=== PATIENT | female | born 1955 | race African-American/Black ===

== ENCOUNTER 2016-09-22 16:11 | Emergency (ER) | payer OTHER ==
[~2016-09-22] VITALS: Ht 175.3 cm; Wt 110.2 kg
[~2016-09-22 16:11] MED LIST: AMLO10TA2 PO; ASPI-378 PO; ASPI81CH43 PO; CYCL1TAB18 PO; FENO160T8 PO; GABA-497 PO; HYDR-1421 PO; HYDR-2601 PO; IBUP800T24 PO; INSUINJ32 SUBCUT; LISI-285 PO; LISI-287 PO; NOVOLOG; SIMV-8 PO; ZOLP10TA6 PO
[2016-09-22 16:49] VITALS: BP 173/58
== END 2016-09-22 17:59 | disposition home or self-care (01) ==
LOC: ER 16:13
DX: E11.42 Type 2 diabetes mellitus with diabetic polyneuropathy (principal); Z79.4 Long term (current) use of insulin; Z87.891 Personal history of nicotine dependence; I10 Essential (primary) hypertension; Z79.82 Long term (current) use of aspirin; Z88.0 Allergy status to penicillin; Z79.899 Other long term (current) drug therapy

== ENCOUNTER 2017-03-02 19:07 | Emergency (ER) | payer OTHER ==
[~2017-03-02] VITALS: Ht 175.3 cm; Wt 95.3 kg
[2017-03-02 20:16] LABS: Basophils # (auto) 0.1 uL; Basophils % (auto) 0.8 % (0.0-2.0); Eosinophils # (auto) 0.1 uL; Eosinophils % (auto) 1.1 % (0.0-7.0); Hematocrit 38.4 % (36.0-46.0); Hemoglobin 12.2 g/dL (12.2-16.2); Lymphocytes % (auto) 24.2 % (10.0-50.0); Mean Corpuscular Hemoglobin 26.3 pg (28.0-32.0); Mean Corpuscular Hgb Conc. 31.9 g/dL (32.0-36.0); Mean Corpuscular Volume 82.7 fL (80.0-100.0); Monocytes # (auto) 0.7 uL; Monocytes % (auto) 5.3 % (0.0-12.0); Neutrophils # (auto) 8.6 uL; Neutrophils % (auto) 68.6 % (37.0-80.0); Platelet Count (auto) 332 10^3/uL (140-450); White Blood Cell 12.6 10^3/uL (4.4-10.8)
[2017-03-02 20:48] LABS: Albumin 3.7 g/dL (3.4-5.0); BUN/Creatinine Ratio 18.5; Bilirubin, Total 0.5 mg/dL (0.2-1.0); Calcium 8.9 mg/dL (8.5-10.1); Potassium 3.8 mmol/L (3.5-5.1); Total Protein 7.8 g/dL (6.4-8.2)
[2017-03-03 04:18] LABS: INR 1.04 (0.9-1.15); Partial Thromboplastin Time 25.2 sec (22.64-33.71); Prothrombin Time 11.3 sec (9.37-12.3)
[2017-03-03 04:30] LABS: B-Type Natriuretic Peptide 394.65 pg/mL (0-100)
[2017-03-03 04:34] LABS: Temperature: 22.4 C (20.0-25.0)
[2017-03-03] MEDS ORDERED: FUROSEMIDE 20 MG/2 ML VIAL IV ONE (05:00)
[2017-03-03 06:02] VITALS: BP 162/101
[2017-03-03 07:42] LABS: Urine Blood Negative /uL (Negative); Urine Color Yellow (Yellow); Urine Glucose Normal (Normal); Urine Ketone Negative (Negative); Urine Mucus MODERATE (None Seen); Urine Nitrite Negative (Negative); Urine RBC 2 /hpf (0 - 4); Urine Squamous Epithelial Cell MANY /hpf (<5); Urine Urobilinogen Normal (Negative)
[2017-03-03 08:13] LABS: Urine Bilirubin Negative (Negative)
== END 2017-03-03 06:30 | disposition home or self-care (01) ==
LOC: ER 19:07
DX: I11.0 Hypertensive heart disease with heart failure (principal); I50.9 Heart failure, unspecified; N39.0 Urinary tract infection, site not specified; E11.9 Type 2 diabetes mellitus without complications; Z87.891 Personal history of nicotine dependence
CPT/HCPCS: 36415; 71010; 80053; 81001; 82962; 83880; 84443; 84484; 85025; 85610; 85730; 96374; 99285; J1940

== ENCOUNTER 2017-05-25 00:44 | Inpatient (IN) | payer OTHER ==
[~2017-05-25] VITALS: Ht 175.3 cm; Wt 118.9 kg
[~2017-05-25 00:44] MED LIST changes: -GABA-497 PO; +GABA300C10 PO
[2017-05-25 01:36] LABS: Eosinophils # (auto) 0 uL; Hemoglobin 12.6 g/dL (12.2-16.2); Mean Corpuscular Hemoglobin 24.9 pg (28.0-32.0); White Blood Cell 11.9 10^3/uL (4.4-10.8)
[2017-05-25 01:38] LABS: Basophils # (auto) 0 uL; Basophils % (auto) 0.3 % (0.0-2.0); Eosinophils % (auto) 0.1 % (0.0-7.0); Lymphocytes # (auto) 1.9 uL; Lymphocytes % (auto) 15.7 % (10.0-50.0); Mean Corpuscular Hgb Conc. 31.4 g/dL (32.0-36.0); Mean Corpuscular Volume 79.4 fL (80.0-100.0); Monocytes # (auto) 0.6 uL; Monocytes % (auto) 4.7 % (0.0-12.0); Neutrophils # (auto) 9.4 uL; Neutrophils % (auto) 79.2 % (37.0-80.0); Platelet Count (auto) 353 10^3/uL (140-450); Red Blood Cells 5.04 10^6/uL (4.0-5.20); Red Cell Distribution Width 15.4 % (11.8-14.3)
[2017-05-25 01:53] LABS: INR 1.12 (0.9-1.15); Partial Thromboplastin Time 25.9 sec (22.64-33.71); Prothrombin Time 12.2 sec (9.37-12.3)
[2017-05-25 01:54] LABS: Alanine Aminotransferase 13 U/L (13-56); Albumin 3.6 g/dL (3.4-5.0); Anion Gap 8 (5-15); BUN/Creatinine Ratio 22.1; Blood Urea Nitrogen 30 mg/dL (7-18); Calcium 8.8 mg/dL (8.5-10.1); Carbon Dioxide 27 mmol/L (21-32); Chloride 105 mmol/L (98-107); GFR African American 51 mL/min; GFR Non-African American 42 mL/min; Glucose 147 mg/dL (74-106); Magnesium 2.3 mg/dL (1.6-2.6); Potassium 4.4 mmol/L (3.5-5.1); Sodium 140 mmol/L (136-145)
[2017-05-25 02:05] LABS: Alkaline Phosphatase 57 U/L (45-117); Aspartate Aminotransferase 32 U/L (15-37); Bilirubin, Total 0.6 mg/dL (0.2-1.0); Total Protein 8.5 g/dL (6.4-8.2)
[2017-05-25] MEDS ORDERED: FUROSEMIDE 40 MG/4 ML VIAL IV ONE (07:15)
[2017-05-25 08:31] LABS: Urine Bacteria FEW /hpf (None Seen); Urine Blood Negative /uL (Negative); Urine Mucus FEW (None Seen); Urine Specific Gravity 1.014 (1.001-1.035); Urine WBC 1 /hpf (0 - 5)
[2017-05-25] MEDS ORDERED: DEXTROSE (50%) 50ML SYRG IV PRN (09:15)
[2017-05-25] MEDS ORDERED: MORPHINE SULFATE 4 MG/ML SYR/VIAL IV PRN (09:15)
[2017-05-25] MEDS ORDERED: NITROGLYCERIN 0.4 MG SL TAB SL PRN (09:15)
[2017-05-25] MEDS ORDERED: hydrOXYzine 25 MG TAB or CAP PO PRN (09:30)
[2017-05-25] MEDS ORDERED: LISINOPRIL 20 MG TAB PO SCH (10:00)
[2017-05-25] MEDS ORDERED: ASPI81CH43 PO (11:14)
[2017-05-25] MEDS ORDERED: FENO160T8 PO (11:14)
[2017-05-25] MEDS ORDERED: SIMV-8 PO (11:14)
[2017-05-25] MEDS ORDERED: ATOR10TA52 PO (11:14)
[2017-05-25] MEDS ORDERED: GABA300C10 PO (11:14)
[2017-05-25] MEDS ORDERED: HYDR-3682 PO (11:14)
[2017-05-25] MEDS ORDERED: BENZ100C97 PO (11:14)
[2017-05-25] MEDS ORDERED: FURO40TA4 PO (11:14)
[2017-05-25] MEDS ORDERED: ACET-1158 PO (11:14)
[2017-05-25] MEDS ORDERED: ALBU2TAB4 INH (11:14)
[2017-05-25] MEDS ORDERED: INSU100I24 SC (11:14)
[2017-05-25] MEDS ORDERED: POTA10TA51 PO (11:14)
[2017-05-25] MEDS ORDERED: LEVEMIR SC (11:14)
[2017-05-25] MEDS ORDERED: ETOD1TAB60 PO (11:14)
[2017-05-25] MEDS ORDERED: LISI-285 PO (11:14)
[2017-05-25 12:00] VITALS: BP 155/86
[2017-05-25] MEDS: ACCU-CHEK COMFORT CURVE STRIP VI SCH ×3 (12:27→22:10)
[2017-05-25] MEDS: INSULIN LANTUS (GLARGINE) 1 /0.01ml (100units/ml) SC SCH ×3 (12:28→22:10)
[2017-05-25] MEDS: InsuLIN REG 1unit/0.01ml Soln (100units/ml) SC SCH ×3 (12:28→22:09)
[2017-05-25] MEDS: NovoloG Insulin 1unit/0.01ml Soln (100units/ml) SC SCH ×2 (12:29→17:00)
[2017-05-25] MEDS: DOXYCYCLINE HYC 100MG/250ML 250 ML IV SCH ×2 (13:00→21:50)
[2017-05-25] MEDS: MULTIPLE VITAMIN TAB PO SCH (13:02)
[2017-05-25] MEDS: POTASSIUM CHL 10 Meq TABLET PO SCH ×2 (13:02→21:56)
[2017-05-25] MEDS: ASPirin-EC 81 mg tab PO SCH (13:02)
[2017-05-25] MEDS: ALBUTEROL SULF 2.5 MG/0.5ML(0.5%) NEB SOLN NEB SCH ×2 (13:02→20:43)
[2017-05-25] MEDS: HCTZ 25 MG TAB PO SCH ×2 (13:04→21:56)
[2017-05-25] MEDS: SODIUM CHLOR 0.9% PF (SALINE LOCK) 10ML VIAL IV SCH ×2 (13:49→21:50)
[2017-05-25] MEDS: GABAPENTIN 300 MG CAP PO SCH ×2 (13:50→21:56)
[2017-05-25 15:00] VITALS: BP 163/86
[2017-05-25] MEDS: HYDROcodone-ACET 5/325MG TAB PO PRN (17:07)
[2017-05-25] MEDS: FUROSEMIDE 40 MG/4 ML VIAL IV SCH (17:44)
[2017-05-25] MEDS: ATORVASTATIN 20 MG TAB PO SCH (21:54)
[2017-05-25] MEDS: AMIODARONE HCL 200 MG TAB PO SCH (21:55)
[2017-05-25] MEDS: CARVEDILOL 3.125 MG TAB PO SCH (21:55)
[2017-05-25 22:06] VITALS: BP 142/78
[2017-05-26] MEDS: ALBUTEROL SULF 2.5 MG/0.5ML(0.5%) NEB SOLN NEB SCH ×4 (01:35→19:56)
[2017-05-26 05:02] VITALS: BP 112/63
[2017-05-26 06:15] LABS: Basophils # (auto) 0.1 uL; Eosinophils # (auto) 0.1 uL; Hemoglobin 11.3 g/dL (12.2-16.2); Monocytes # (auto) 0.6 uL; Nucleated Red Blood Cells % 0.1 %
[2017-05-26 06:18] LABS: Basophils % (auto) 0.7 % (0.0-2.0); Eosinophils % (auto) 1.6 % (0.0-7.0); Hematocrit 35.3 % (36.0-46.0); Lymphocytes # (auto) 2.1 uL; Lymphocytes % (auto) 25.3 % (10.0-50.0); Mean Corpuscular Hemoglobin 24.9 pg (28.0-32.0); Mean Corpuscular Volume 77.7 fL (80.0-100.0); Monocytes % (auto) 7.2 % (0.0-12.0); Neutrophils # (auto) 5.5 uL; Neutrophils % (auto) 65.2 % (37.0-80.0); Platelet Count (auto) 336 10^3/uL (140-450); Red Blood Cells 4.55 10^6/uL (4.0-5.20); Red Cell Distribution Width 15.2 % (11.8-14.3); White Blood Cell 8.5 10^3/uL (4.4-10.8)
[2017-05-26] MEDS: GABAPENTIN 300 MG CAP PO SCH ×3 (06:19→21:14)
[2017-05-26] MEDS: InsuLIN REG 1unit/0.01ml Soln (100units/ml) SC SCH ×4 (06:19→21:05)
[2017-05-26] MEDS: ACCU-CHEK COMFORT CURVE STRIP VI SCH ×4 (06:20→21:06)
[2017-05-26] MEDS: FUROSEMIDE 40 MG/4 ML VIAL IV SCH ×2 (06:23→17:41)
[2017-05-26] MEDS: SODIUM CHLOR 0.9% PF (SALINE LOCK) 10ML VIAL IV SCH ×3 (06:23→21:18)
[2017-05-26 06:36] LABS: Potassium 3.6 mmol/L (3.5-5.1)
[2017-05-26] MEDS: INSULIN LANTUS (GLARGINE) 1 /0.01ml (100units/ml) SC SCH ×3 (06:36→21:05)
[2017-05-26] MEDS: NovoloG Insulin 1unit/0.01ml Soln (100units/ml) SC SCH ×3 (06:37→17:42)
[2017-05-26 06:41] LABS: Albumin 3.2 g/dL (3.4-5.0); BUN/Creatinine Ratio 22.9; Calcium 8.6 mg/dL (8.5-10.1)
[2017-05-26 06:43] LABS: Bilirubin, Total 0.7 mg/dL (0.2-1.0); Total Protein 7.3 g/dL (6.4-8.2)
[2017-05-26 08:00] VITALS: BP 129/73
[2017-05-26 08:39] VITALS: BP 129/73
[2017-05-26] MEDS: ONDANSETRON HCL 4 MG/2 ML VIAL IV PRN (09:06)
[2017-05-26] MEDS: HYDROcodone-ACET 5/325MG TAB PO PRN ×2 (09:07→21:14)
[2017-05-26] MEDS: CARVEDILOL 3.125 MG TAB PO SCH ×2 (09:08→21:15)
[2017-05-26] MEDS: AMIODARONE HCL 200 MG TAB PO SCH ×2 (09:09→21:15)
[2017-05-26] MEDS: HCTZ 25 MG TAB PO SCH ×2 (09:10→21:18)
[2017-05-26] MEDS: MULTIPLE VITAMIN TAB PO SCH (09:10)
[2017-05-26] MEDS: POTASSIUM CHL 10 Meq TABLET PO SCH ×2 (09:10→21:14)
[2017-05-26] MEDS: ASPirin-EC 81 mg tab PO SCH (09:11)
[2017-05-26] MEDS: LISINOPRIL 5 MG TAB PO SCH (09:11)
[2017-05-26] MEDS: DOXYCYCLINE HYC 100MG/250ML 250 ML IV SCH ×2 (09:13→21:13)
[2017-05-26 12:00] VITALS: BP 91/56
[2017-05-26 16:00] VITALS: BP 100/66
[2017-05-26] MEDS: ATORVASTATIN 20 MG TAB PO SCH (21:13)
[2017-05-26 21:38] VITALS: BP 97/57
[2017-05-26] MEDS: TEMAZEPAM 15 MG CAP PO PRN (22:24)
[2017-05-27] MEDS: ALBUTEROL SULF 2.5 MG/0.5ML(0.5%) NEB SOLN NEB SCH ×4 (01:04→18:40)
[2017-05-27 05:15] VITALS: BP 101/50
[2017-05-27] MEDS: FUROSEMIDE 40 MG/4 ML VIAL IV SCH ×2 (06:04→18:00)
[2017-05-27] MEDS: SODIUM CHLOR 0.9% PF (SALINE LOCK) 10ML VIAL IV SCH ×3 (06:04→22:00)
[2017-05-27] MEDS: GABAPENTIN 300 MG CAP PO SCH ×3 (06:05→21:55)
[2017-05-27] MEDS: ACCU-CHEK COMFORT CURVE STRIP VI SCH ×4 (06:07→22:10)
[2017-05-27] MEDS: InsuLIN REG 1unit/0.01ml Soln (100units/ml) SC SCH ×4 (06:09→22:10)
[2017-05-27] MEDS: NovoloG Insulin 1unit/0.01ml Soln (100units/ml) SC SCH ×3 (06:11→17:00)
[2017-05-27 08:00] VITALS: BP 95/52
[2017-05-27] MEDS ORDERED: ADENOSINE 94 MG in GIVE UN-DILUTED 0 ML IV STA (08:37)
[2017-05-27 09:24] VITALS: BP 143/85
[2017-05-27] MEDS: INSULIN LANTUS (GLARGINE) 1 /0.01ml (100units/ml) SC SCH ×2 (10:00→22:00)
[2017-05-27] MEDS: CARVEDILOL 3.125 MG TAB PO SCH ×2 (10:00→21:59)
[2017-05-27] MEDS: LISINOPRIL 5 MG TAB PO SCH (10:00)
[2017-05-27 11:40] VITALS: BP 91/54
[2017-05-27] MEDS: AMIODARONE HCL 200 MG TAB PO SCH ×2 (11:49→22:00)
[2017-05-27] MEDS: DOXYCYCLINE HYC 100MG/250ML 250 ML IV SCH (11:49)
[2017-05-27] MEDS: HCTZ 25 MG TAB PO SCH ×2 (11:50→22:00)
[2017-05-27] MEDS: ASPirin-EC 81 mg tab PO SCH (11:50)
[2017-05-27] MEDS: MULTIPLE VITAMIN TAB PO SCH (11:51)
[2017-05-27] MEDS: POTASSIUM CHL 10 Meq TABLET PO SCH ×2 (11:51→21:59)
[2017-05-27] MEDS: ONDANSETRON HCL 4 MG/2 ML VIAL IV PRN (11:53)
[2017-05-27 16:47] VITALS: BP 94/58
[2017-05-27] MEDS: ATORVASTATIN 20 MG TAB PO SCH (21:55)
[2017-05-27 22:04] VITALS: BP 101/54
[2017-05-27] MEDS: HYDROcodone-ACET 5/325MG TAB PO PRN (22:08)
[2017-05-28] MEDS: ALBUTEROL SULF 2.5 MG/0.5ML(0.5%) NEB SOLN NEB SCH ×4 (00:16→19:02)
[2017-05-28] MEDS: DOXYCYCLINE HYC 100MG/250ML 250 ML IV SCH ×2 (01:01→09:47)
[2017-05-28] MEDS: ONDANSETRON HCL 4 MG/2 ML VIAL IV PRN (03:31)
[2017-05-28 04:56] VITALS: BP 110/56
[2017-05-28] MEDS: FUROSEMIDE 40 MG/4 ML VIAL IV SCH (06:00)
[2017-05-28] MEDS: GABAPENTIN 300 MG CAP PO SCH ×3 (06:46→22:28)
[2017-05-28] MEDS: SODIUM CHLOR 0.9% PF (SALINE LOCK) 10ML VIAL IV SCH ×3 (06:46→22:24)
[2017-05-28] MEDS: ACCU-CHEK COMFORT CURVE STRIP VI SCH ×4 (06:47→22:38)
[2017-05-28] MEDS: InsuLIN REG 1unit/0.01ml Soln (100units/ml) SC SCH ×4 (06:47→22:00)
[2017-05-28] MEDS: NovoloG Insulin 1unit/0.01ml Soln (100units/ml) SC SCH ×3 (06:48→17:00)
[2017-05-28 07:27] LABS: Basophils # (auto) 0 uL; Basophils % (auto) 0.4 % (0.0-2.0); Eosinophils # (auto) 0.2 uL; Hemoglobin 10.9 g/dL (12.2-16.2); Monocytes # (auto) 0.7 uL; Nucleated Red Blood Cells % 0.1 %
[2017-05-28 07:29] VITALS: BP 102/55
[2017-05-28 07:30] LABS: Eosinophils % (auto) 1.8 % (0.0-7.0); Hematocrit 34.8 % (36.0-46.0); Lymphocytes # (auto) 1.9 uL; Lymphocytes % (auto) 16.7 % (10.0-50.0); Mean Corpuscular Hemoglobin 24.5 pg (28.0-32.0); Mean Corpuscular Hgb Conc. 31.2 g/dL (32.0-36.0); Mean Corpuscular Volume 78.7 fL (80.0-100.0); Monocytes % (auto) 6.2 % (0.0-12.0); Neutrophils # (auto) 8.5 uL; Neutrophils % (auto) 74.9 % (37.0-80.0); Platelet Count (auto) 355 10^3/uL (140-450); Red Blood Cells 4.42 10^6/uL (4.0-5.20); Red Cell Distribution Width 15.6 % (11.8-14.3); White Blood Cell 11.4 10^3/uL (4.4-10.8)
[2017-05-28 07:45] LABS: Anion Gap 11 (5-15); BUN/Creatinine Ratio 20.9; Blood Urea Nitrogen 53 mg/dL (7-18); Calcium 8.4 mg/dL (8.5-10.1); Carbon Dioxide 27 mmol/L (21-32); Chloride 99 mmol/L (98-107); GFR African American 25 mL/min; GFR Non-African American 20 mL/min; Glucose 138 mg/dL (74-106); Potassium 4.5 mmol/L (3.5-5.1); Sodium 137 mmol/L (136-145)
[2017-05-28] MEDS: MORPHINE SULFATE 4 MG/ML SYR/VIAL IV PRN ×2 (08:45→16:56)
[2017-05-28] MEDS: AMIODARONE HCL 200 MG TAB PO SCH ×2 (09:49→22:28)
[2017-05-28] MEDS: HYDROcodone-ACET 5/325MG TAB PO PRN ×3 (09:50→22:37)
[2017-05-28] MEDS: ASPirin-EC 81 mg tab PO SCH (09:50)
[2017-05-28] MEDS: HCTZ 25 MG TAB PO SCH (09:50)
[2017-05-28] MEDS: POTASSIUM CHL 10 Meq TABLET PO SCH (09:54)
[2017-05-28] MEDS: MULTIPLE VITAMIN TAB PO SCH (09:54)
[2017-05-28] MEDS: CARVEDILOL 3.125 MG TAB PO SCH ×2 (10:00→22:00)
[2017-05-28] MEDS: LISINOPRIL 5 MG TAB PO SCH (10:00)
[2017-05-28] MEDS: INSULIN LANTUS (GLARGINE) 1 /0.01ml (100units/ml) SC SCH ×2 (10:00→22:00)
[2017-05-28 11:44] VITALS: BP 96/51
[2017-05-28 16:33] VITALS: BP 102/65
[2017-05-28 22:00] VITALS: BP 91/46
[2017-05-28] MEDS: ATORVASTATIN 20 MG TAB PO SCH (22:28)
[2017-05-28] MEDS: TEMAZEPAM 15 MG CAP PO PRN (22:37)
[2017-05-29] MEDS: ALBUTEROL SULF 2.5 MG/0.5ML(0.5%) NEB SOLN NEB SCH ×4 (00:44→19:12)
[2017-05-29 05:16] VITALS: BP 84/48
[2017-05-29] MEDS: NovoloG Insulin 1unit/0.01ml Soln (100units/ml) SC SCH ×3 (05:59→17:00)
[2017-05-29] MEDS: InsuLIN REG 1unit/0.01ml Soln (100units/ml) SC SCH ×4 (05:59→22:00)
[2017-05-29] MEDS: GABAPENTIN 300 MG CAP PO SCH ×3 (05:59→21:56)
[2017-05-29] MEDS: SODIUM CHLOR 0.9% PF (SALINE LOCK) 10ML VIAL IV SCH ×3 (05:59→21:58)
[2017-05-29] MEDS: ACCU-CHEK COMFORT CURVE STRIP VI SCH ×4 (05:59→22:15)
[2017-05-29 06:46] LABS: Eosinophils # (auto) 0.1 uL; Monocytes # (auto) 0.8 uL; Nucleated Red Blood Cells % 0.1 %; White Blood Cell 9.9 10^3/uL (4.4-10.8)
[2017-05-29 06:49] LABS: Basophils # (auto) 0 uL; Basophils % (auto) 0.4 % (0.0-2.0); Eosinophils % (auto) 1.1 % (0.0-7.0); Hematocrit 35.6 % (36.0-46.0); Hemoglobin 11.2 g/dL (12.2-16.2); Lymphocytes # (auto) 2.8 uL; Lymphocytes % (auto) 28.5 % (10.0-50.0); Mean Corpuscular Hemoglobin 24.8 pg (28.0-32.0); Mean Corpuscular Hgb Conc. 31.6 g/dL (32.0-36.0); Mean Corpuscular Volume 78.7 fL (80.0-100.0); Monocytes % (auto) 7.7 % (0.0-12.0); Neutrophils # (auto) 6.1 uL; Neutrophils % (auto) 62.3 % (37.0-80.0); Platelet Count (auto) 369 10^3/uL (140-450); Red Blood Cells 4.52 10^6/uL (4.0-5.20); Red Cell Distribution Width 15.6 % (11.8-14.3)
[2017-05-29 07:05] LABS: BUN/Creatinine Ratio 23.7; Calcium 8.7 mg/dL (8.5-10.1); Potassium 4.7 mmol/L (3.5-5.1)
[2017-05-29 07:48] VITALS: BP 104/54
[2017-05-29] MEDS: MORPHINE SULFATE 4 MG/ML SYR/VIAL IV PRN ×2 (07:52→14:41)
[2017-05-29 09:15] VITALS: BP 104/54
[2017-05-29] MEDS: LISINOPRIL 5 MG TAB PO SCH (10:00)
[2017-05-29] MEDS: CARVEDILOL 3.125 MG TAB PO SCH ×2 (10:00→21:58)
[2017-05-29] MEDS ORDERED: ANGIOMAX 250 MG VIAL IV ONE (10:11)
[2017-05-29] MEDS ORDERED: fentaNYL CITRATE 100 MCG/2 ML VL ONE (10:11)
[2017-05-29] MEDS ORDERED: MIDAZOLAM HCL 1MG/1ML-2 ML VIAL ONE (10:12)
[2017-05-29] MEDS ORDERED: SODIUM CHL 0.9% 0 ML ONE (10:12)
[2017-05-29] MEDS: HYDROcodone-ACET 5/325MG TAB PO PRN ×2 (12:46→17:35)
[2017-05-29] MEDS: MULTIPLE VITAMIN TAB PO SCH (14:16)
[2017-05-29] MEDS: INSULIN LANTUS (GLARGINE) 1 /0.01ml (100units/ml) SC SCH ×2 (14:16→22:15)
[2017-05-29] MEDS: ASPirin-EC 81 mg tab PO SCH (14:16)
[2017-05-29] MEDS: AMIODARONE HCL 200 MG TAB PO SCH ×2 (14:17→21:57)
[2017-05-29 16:48] VITALS: BP 127/68
[2017-05-29 20:00] VITALS: BP 121/66
[2017-05-29] MEDS: ATORVASTATIN 20 MG TAB PO SCH (21:56)
[2017-05-29 22:00] VITALS: BP 121/66
[2017-05-30] MEDS: ALBUTEROL SULF 2.5 MG/0.5ML(0.5%) NEB SOLN NEB SCH ×5 (01:16→23:57)
[2017-05-30 05:00] VITALS: BP 98/60
[2017-05-30] MEDS: GABAPENTIN 300 MG CAP PO SCH ×3 (05:36→21:59)
[2017-05-30] MEDS: SODIUM CHLOR 0.9% PF (SALINE LOCK) 10ML VIAL IV SCH ×3 (05:36→21:55)
[2017-05-30] MEDS: NovoloG Insulin 1unit/0.01ml Soln (100units/ml) SC SCH ×3 (07:00→17:12)
[2017-05-30] MEDS: InsuLIN REG 1unit/0.01ml Soln (100units/ml) SC SCH ×4 (07:00→22:00)
[2017-05-30] MEDS: ACCU-CHEK COMFORT CURVE STRIP VI SCH ×4 (07:35→22:00)
[2017-05-30 09:12] VITALS: BP 116/82
[2017-05-30] MEDS: AMIODARONE HCL 200 MG TAB PO SCH ×2 (09:37→21:56)
[2017-05-30] MEDS: LISINOPRIL 5 MG TAB PO SCH (09:38)
[2017-05-30] MEDS: MULTIPLE VITAMIN TAB PO SCH (09:38)
[2017-05-30] MEDS: CARVEDILOL 3.125 MG TAB PO SCH ×2 (09:38→21:59)
[2017-05-30] MEDS: ASPirin-EC 81 mg tab PO SCH (09:38)
[2017-05-30] MEDS: INSULIN LANTUS (GLARGINE) 1 /0.01ml (100units/ml) SC SCH ×2 (09:48→22:00)
[2017-05-30] MEDS ORDERED: SOD CHL 0.45% 1,000 ML IV ONE (12:30)
[2017-05-30 13:00] VITALS: BP 121/85
[2017-05-30 17:20] VITALS: BP 113/87
[2017-05-30 20:00] VITALS: BP 127/57
[2017-05-30] MEDS: ATORVASTATIN 20 MG TAB PO SCH (21:59)
[2017-05-31] VITALS (7 sets, daily range): BP systolic 91–119; BP diastolic 46–61
[2017-05-31] MEDS: TEMAZEPAM 15 MG CAP PO PRN (00:02)
[2017-05-31] MEDS: HYDROcodone-ACET 5/325MG TAB PO PRN ×2 (00:02→23:36)
[2017-05-31] MEDS: ALBUTEROL SULF 2.5 MG/0.5ML(0.5%) NEB SOLN NEB SCH ×3 (06:11→19:05)
[2017-05-31] MEDS: SODIUM CHLOR 0.9% PF (SALINE LOCK) 10ML VIAL IV SCH ×3 (06:22→22:00)
[2017-05-31] MEDS: GABAPENTIN 300 MG CAP PO SCH ×3 (06:23→23:36)
[2017-05-31] MEDS: InsuLIN REG 1unit/0.01ml Soln (100units/ml) SC SCH ×4 (06:23→22:00)
[2017-05-31] MEDS: ACCU-CHEK COMFORT CURVE STRIP VI SCH ×4 (06:24→22:00)
[2017-05-31] MEDS: NovoloG Insulin 1unit/0.01ml Soln (100units/ml) SC SCH ×3 (07:00→17:00)
[2017-05-31 07:56] LABS: BUN/Creatinine Ratio 33.9; Calcium 8.1 mg/dL (8.5-10.1); Potassium 4.1 mmol/L (3.5-5.1)
[2017-05-31 08:16] LABS: Mean Corpuscular Volume 79.4 fL (80.0-100.0); Monocytes # (auto) 0.7 uL; Neutrophils # (auto) 5.6 uL; Red Cell Distribution Width 15.3 % (11.8-14.3)
[2017-05-31 08:18] LABS: Basophils # (auto) 0.1 uL; Basophils % (auto) 0.7 % (0.0-2.0); Eosinophils # (auto) 0.2 uL; Eosinophils % (auto) 2.6 % (0.0-7.0); Hematocrit 31.5 % (36.0-46.0); Lymphocytes # (auto) 1.9 uL; Lymphocytes % (auto) 22.4 % (10.0-50.0); Mean Corpuscular Hemoglobin 25.1 pg (28.0-32.0); Mean Corpuscular Hgb Conc. 31.6 g/dL (32.0-36.0); Monocytes % (auto) 8.5 % (0.0-12.0); Neutrophils % (auto) 65.8 % (37.0-80.0); Nucleated Red Blood Cells % 0.1 %; Platelet Count (auto) 309 10^3/uL (140-450); Red Blood Cells 3.97 10^6/uL (4.0-5.20); White Blood Cell 8.5 10^3/uL (4.4-10.8)
[2017-05-31] MEDS: CARVEDILOL 3.125 MG TAB PO SCH ×2 (09:40→22:00)
[2017-05-31] MEDS: ASPirin-EC 81 mg tab PO SCH (09:42)
[2017-05-31] MEDS: MULTIPLE VITAMIN TAB PO SCH (09:42)
[2017-05-31] MEDS: AMIODARONE HCL 200 MG TAB PO SCH ×2 (09:42→23:37)
[2017-05-31] MEDS: DOCUSATE SOD 100 MG CAP PO PRN ×2 (09:46→23:36)
[2017-05-31] MEDS: INSULIN LANTUS (GLARGINE) 1 /0.01ml (100units/ml) SC SCH ×2 (09:50→22:00)
[2017-05-31] MEDS: ONDANSETRON HCL 4 MG/2 ML VIAL IV PRN (14:11)
[2017-05-31] MEDS: ATORVASTATIN 20 MG TAB PO SCH (23:35)
[2017-06-01] VITALS (7 sets, daily range): BP systolic 102–127; BP diastolic 46–71
[2017-06-01] MEDS: ALBUTEROL SULF 2.5 MG/0.5ML(0.5%) NEB SOLN NEB SCH ×4 (00:59→19:29)
[2017-06-01] MEDS: SODIUM CHLOR 0.9% PF (SALINE LOCK) 10ML VIAL IV SCH ×3 (06:00→22:26)
[2017-06-01 06:34] LABS: Basophils # (auto) 0.1 uL; Eosinophils # (auto) 0.2 uL; Lymphocytes # (auto) 2.1 uL; Monocytes # (auto) 0.8 uL; Neutrophils # (auto) 8.1 uL
[2017-06-01 06:37] LABS: Basophils % (auto) 0.7 % (0.0-2.0); Eosinophils % (auto) 1.7 % (0.0-7.0); Hematocrit 35.7 % (36.0-46.0); Hemoglobin 11.2 g/dL (12.2-16.2); Lymphocytes % (auto) 18.6 % (10.0-50.0); Mean Corpuscular Hemoglobin 24.6 pg (28.0-32.0); Mean Corpuscular Hgb Conc. 31.5 g/dL (32.0-36.0); Mean Corpuscular Volume 78.2 fL (80.0-100.0); Monocytes % (auto) 7.2 % (0.0-12.0); Neutrophils % (auto) 71.8 % (37.0-80.0); Platelet Count (auto) 356 10^3/uL (140-450); Red Blood Cells 4.56 10^6/uL (4.0-5.20); Red Cell Distribution Width 15.3 % (11.8-14.3); White Blood Cell 11.2 10^3/uL (4.4-10.8)
[2017-06-01] MEDS: GABAPENTIN 300 MG CAP PO SCH ×3 (06:43→22:43)
[2017-06-01 06:53] LABS: Calcium 8.6 mg/dL (8.5-10.1); Potassium 4.4 mmol/L (3.5-5.1)
[2017-06-01] MEDS: InsuLIN REG 1unit/0.01ml Soln (100units/ml) SC SCH ×4 (06:54→22:00)
[2017-06-01] MEDS: NovoloG Insulin 1unit/0.01ml Soln (100units/ml) SC SCH ×3 (06:54→17:48)
[2017-06-01] MEDS: ACCU-CHEK COMFORT CURVE STRIP VI SCH ×4 (06:55→22:27)
[2017-06-01] MEDS: CARVEDILOL 3.125 MG TAB PO SCH ×2 (09:30→22:45)
[2017-06-01] MEDS: MULTIPLE VITAMIN TAB PO SCH (09:31)
[2017-06-01] MEDS: ASPirin-EC 81 mg tab PO SCH (09:31)
[2017-06-01] MEDS: AMIODARONE HCL 200 MG TAB PO SCH ×2 (09:31→22:42)
[2017-06-01] MEDS: INSULIN LANTUS (GLARGINE) 1 /0.01ml (100units/ml) SC SCH ×2 (10:22→22:00)
[2017-06-01] MEDS: ATORVASTATIN 20 MG TAB PO SCH (22:42)
[2017-06-02] MEDS: ALBUTEROL SULF 2.5 MG/0.5ML(0.5%) NEB SOLN NEB SCH ×4 (01:08→18:58)
[2017-06-02] MEDS: HYDROcodone-ACET 5/325MG TAB PO PRN ×2 (03:45→22:25)
[2017-06-02 05:00] VITALS: BP 98/44
[2017-06-02] MEDS: SODIUM CHLOR 0.9% PF (SALINE LOCK) 10ML VIAL IV SCH ×3 (06:00→22:11)
[2017-06-02] MEDS: NovoloG Insulin 1unit/0.01ml Soln (100units/ml) SC SCH ×3 (06:35→17:00)
[2017-06-02] MEDS: InsuLIN REG 1unit/0.01ml Soln (100units/ml) SC SCH ×4 (06:35→22:00)
[2017-06-02] MEDS: ACCU-CHEK COMFORT CURVE STRIP VI SCH ×4 (06:36→22:00)
[2017-06-02] MEDS: GABAPENTIN 300 MG CAP PO SCH ×3 (06:39→22:16)
[2017-06-02 07:17] LABS: Basophils # (auto) 0.1 uL; Eosinophils # (auto) 0.2 uL; Lymphocytes # (auto) 2.3 uL; Monocytes # (auto) 0.6 uL; White Blood Cell 7.8 10^3/uL (4.4-10.8)
[2017-06-02 07:20] LABS: Basophils % (auto) 0.7 % (0.0-2.0); Eosinophils % (auto) 2.1 % (0.0-7.0); Hematocrit 32.4 % (36.0-46.0); Hemoglobin 10.4 g/dL (12.2-16.2); Lymphocytes % (auto) 29.2 % (10.0-50.0); Mean Corpuscular Hgb Conc. 32.1 g/dL (32.0-36.0); Mean Corpuscular Volume 78.1 fL (80.0-100.0); Monocytes % (auto) 7.7 % (0.0-12.0); Neutrophils # (auto) 4.7 uL; Neutrophils % (auto) 60.3 % (37.0-80.0); Platelet Count (auto) 326 10^3/uL (140-450); Red Blood Cells 4.15 10^6/uL (4.0-5.20); Red Cell Distribution Width 15.5 % (11.8-14.3)
[2017-06-02 07:36] LABS: BUN/Creatinine Ratio 33.7; Calcium 8.4 mg/dL (8.5-10.1); Potassium 4.6 mmol/L (3.5-5.1)
[2017-06-02 08:00] VITALS: BP 111/65
[2017-06-02] MEDS: MULTIPLE VITAMIN TAB PO SCH (08:58)
[2017-06-02] MEDS: CARVEDILOL 3.125 MG TAB PO SCH ×2 (08:58→22:13)
[2017-06-02] MEDS: ASPirin-EC 81 mg tab PO SCH (08:58)
[2017-06-02] MEDS: AMIODARONE HCL 200 MG TAB PO SCH ×2 (08:58→22:13)
[2017-06-02] MEDS: INSULIN LANTUS (GLARGINE) 1 /0.01ml (100units/ml) SC SCH ×2 (08:59→22:00)
[2017-06-02 09:00] VITALS: BP 111/51
[2017-06-02] MEDS: ONDANSETRON HCL 4 MG/2 ML VIAL IV PRN (10:15)
[2017-06-02 13:00] VITALS: BP 99/64
[2017-06-02] MEDS ORDERED: VANCOMYCIN 1GM/250ML 250 ML IV ONE ×2 (13:19→15:43)
[2017-06-02] MEDS ORDERED: IOHEXOL 350 MG/ML 100ML IJ ONE (14:27)
[2017-06-02] MEDS ORDERED: LIDOCAINE HCL 2 %PF INJ 10ML AMP IJ ONE ×2 (14:28→15:16)
[2017-06-02] MEDS ORDERED: fentaNYL CITRATE 100 MCG/2 ML VL ONE (14:57)
[2017-06-02] MEDS ORDERED: MIDAZOLAM HCL 1MG/1ML-2 ML VIAL ONE ×2 (14:57→15:18)
[2017-06-02] MEDS ORDERED: VANCOMYCIN HCL 1000 MG VL ONE (14:57)
[2017-06-02] MEDS ORDERED: diphenhdrAMINE HCL 50 MG/1 ML VL ONE (15:11)
[2017-06-02] MEDS ORDERED: EPINEPHrine HCL 1 MG/10 ML SYRG ONE (15:26)
[2017-06-02] MEDS ORDERED: ATROPINE SULF 0.5 MG/5ML SYR ONE (15:26)
[2017-06-02] MEDS ORDERED: FUROSEMIDE 20 MG/2 ML VIAL ONE (15:45)
[2017-06-02 17:00] VITALS: BP 129/72
[2017-06-02 20:00] VITALS: BP 159/71
[2017-06-02] MEDS: ATORVASTATIN 20 MG TAB PO SCH (22:11)
[2017-06-02] MEDS: VANCOMYCIN 1GM/250ML 250 ML IV SCH (22:16)
[2017-06-02] MEDS: ACETAMINOPHEN 325 MG TAB PO PRN (23:40)
[2017-06-03] MEDS: ALBUTEROL SULF 2.5 MG/0.5ML(0.5%) NEB SOLN NEB SCH ×3 (00:10→11:41)
[2017-06-03] MEDS: HYDROcodone-ACET 5/325MG TAB PO PRN (04:39)
[2017-06-03 05:37] VITALS: BP 139/70
[2017-06-03] MEDS: SODIUM CHLOR 0.9% PF (SALINE LOCK) 10ML VIAL IV SCH ×2 (06:10→15:01)
[2017-06-03] MEDS: GABAPENTIN 300 MG CAP PO SCH ×2 (06:10→15:01)
[2017-06-03] MEDS: ACCU-CHEK COMFORT CURVE STRIP VI SCH ×3 (06:10→18:02)
[2017-06-03] MEDS: ACETAMINOPHEN 325 MG TAB PO PRN (06:13)
[2017-06-03] MEDS: InsuLIN REG 1unit/0.01ml Soln (100units/ml) SC SCH ×3 (06:22→17:00)
[2017-06-03] MEDS: NovoloG Insulin 1unit/0.01ml Soln (100units/ml) SC SCH ×3 (06:23→17:00)
[2017-06-03 07:26] LABS: Eosinophils # (auto) 0.1 uL; Neutrophils # (auto) 7.4 uL
[2017-06-03 07:29] LABS: Basophils # (auto) 0 uL; Basophils % (auto) 0.4 % (0.0-2.0); Eosinophils % (auto) 1.1 % (0.0-7.0); Hematocrit 32.5 % (36.0-46.0); Hemoglobin 10.4 g/dL (12.2-16.2); Lymphocytes % (auto) 19.7 % (10.0-50.0); Mean Corpuscular Hemoglobin 24.9 pg (28.0-32.0); Mean Corpuscular Volume 77.7 fL (80.0-100.0); Monocytes # (auto) 0.8 uL; Monocytes % (auto) 7.9 % (0.0-12.0); Neutrophils % (auto) 70.9 % (37.0-80.0); Platelet Count (auto) 311 10^3/uL (140-450); Red Blood Cells 4.18 10^6/uL (4.0-5.20); Red Cell Distribution Width 15.5 % (11.8-14.3); White Blood Cell 10.4 10^3/uL (4.4-10.8)
[2017-06-03 07:40] LABS: BUN/Creatinine Ratio 33.9; Calcium 8.5 mg/dL (8.5-10.1); Potassium 4.7 mmol/L (3.5-5.1)
[2017-06-03 08:00] VITALS: BP 148/78
[2017-06-03] MEDS: ONDANSETRON HCL 4 MG/2 ML VIAL IV PRN (08:05)
[2017-06-03 09:00] VITALS: BP 113/66
[2017-06-03] MEDS: ASPirin-EC 81 mg tab PO SCH (09:52)
[2017-06-03] MEDS: MULTIPLE VITAMIN TAB PO SCH (09:53)
[2017-06-03] MEDS: AMIODARONE HCL 200 MG TAB PO SCH (09:53)
[2017-06-03] MEDS: CARVEDILOL 3.125 MG TAB PO SCH (09:53)
[2017-06-03] MEDS: VANCOMYCIN 1GM/250ML 250 ML IV SCH (09:54)
[2017-06-03] MEDS: INSULIN LANTUS (GLARGINE) 1 /0.01ml (100units/ml) SC SCH (10:00)
[2017-06-03 13:53] VITALS: BP 104/68
[2017-06-03 16:45] VITALS: BP 114/70
[2017-06-03 16:46] VITALS: BP 104/68
== END 2017-06-03 21:17 | disposition home health service (06) | DRG 222 ==
LOC: EDBD 00:44 → ER 00:51 → TELE 00:52 → TELE-EAST 10:50
PROVIDERS: ADMIT Internal Medicine; ATTEND Internal Medicine Pulmonary Disease
PROC: 4A023N7 Measurement of Cardiac Sampling and Pressure, Left Heart, Percutaneous Approach (ICD-10-PCS; principal; 2017-05-29)
PROC: B2111ZZ Fluoroscopy of Multiple Coronary Arteries using Low Osmolar Contrast (ICD-10-PCS; 2017-05-29)
PROC: B2151ZZ Fluoroscopy of Left Heart using Low Osmolar Contrast (ICD-10-PCS; 2017-05-29)
PROC: 0JH609Z Insertion of Cardiac Resynchronization Defibrillator Pulse Generator into Chest Subcutaneous Tissue and Fascia, Open Approach (ICD-10-PCS; 2017-06-02)
PROC: 02HL3KZ Insertion of Defibrillator Lead into Left Ventricle, Percutaneous Approach (ICD-10-PCS; 2017-06-02)
PROC: 02H63KZ Insertion of Defibrillator Lead into Right Atrium, Percutaneous Approach (ICD-10-PCS; 2017-06-02)
PROC: 02HK3KZ Insertion of Defibrillator Lead into Right Ventricle, Percutaneous Approach (ICD-10-PCS; 2017-06-02)
DX: I13.0 Hypertensive heart and chronic kidney disease with heart failure and stage 1 through stage 4 chronic kidney disease, or unspecified chronic kidney disease (principal); I50.43 Acute on chronic combined systolic (congestive) and diastolic (congestive) heart failure; N17.0 Acute kidney failure with tubular necrosis; I47.1 Supraventricular tachycardia; E44.1 Mild protein-calorie malnutrition; I42.0 Dilated cardiomyopathy; E11.21 Type 2 diabetes mellitus with diabetic nephropathy; E11.40 Type 2 diabetes mellitus with diabetic neuropathy, unspecified; N18.3 Chronic kidney disease, stage 3 (moderate); E11.22 Type 2 diabetes mellitus with diabetic chronic kidney disease; E78.5 Hyperlipidemia, unspecified; Z82.49 Family history of ischemic heart disease and other diseases of the circulatory system; Z83.3 Family history of diabetes mellitus; Z88.0 Allergy status to penicillin; Z79.82 Long term (current) use of aspirin; Z79.899 Other long term (current) drug therapy; Z68.38 Body mass index [BMI] 38.0-38.9, adult
CPT/HCPCS: 33225; 33249; 36415; 36600; 51702; 71045; 80048; 80053; 81001; 82805; 82962; 83036; 83735; 83880; 84439; 84443; 84484; 85025; 85610; 85730; 86850; 86900; 86901; 87040; 87077; 87186; 93005; 93306; 93458; 94640; 94761; 96374; 97110; 97530; 99152; 99153; 99291; J0153; J0461; J1815; J2250; J2405; J3490

== ENCOUNTER 2019-06-03 08:09 | Inpatient (IN) | payer OTHER, MEDICAID ==
[~2019-06-03] VITALS: Ht 175.3 cm; Wt 113.4 kg
[~2019-06-03 08:09] MED LIST changes: +ACET-1158 PO; +ALBU2TAB4 INH; -AMLO10TA2 PO; -ASPI-378 PO; +ATOR10TA52 PO; +BENZ100C97 PO; -CYCL1TAB18 PO; +ETOD1TAB60 PO; +FURO40TA4 PO; -HYDR-1421 PO; -HYDR-2601 PO; +HYDR-3682 PO; -IBUP800T24 PO; +INSU100I24 SC; -INSUINJ32 SUBCUT; +LEVEMIR SC; -LISI-287 PO; -NOVOLOG; +POTA10TA51 PO; -ZOLP10TA6 PO
[2019-06-03] MEDS ORDERED: ENALAPRILAT 1.25 MG/ML-1ML VIAL IV ONE (08:45)
[2019-06-03] MEDS ORDERED: NITROGLYCERIN 0.2MG/HR TOPICAL PATCH TD ONE (08:45)
[2019-06-03 09:01] LABS: Basophils # (auto) 0.1 10 ^3/uL (0-0.2); Basophils % (auto) 0.9 % (0.0-2.0); Eosinophils # (auto) 0.1 10 ^3/uL (0-0.8); Lymphocytes # (auto) 1.7 10 ^3/uL (0.4-5.4); Monocytes # (auto) 0.4 10 ^3/uL (0-1.3); Nucleated Red Blood Cells % 0.1 %
[2019-06-03 09:03] LABS: Eosinophils % (auto) 1.4 % (0.0-7.0); Hematocrit 46.6 % (36.0-46.0); Hemoglobin 15.1 g/dL (12.2-16.2); Lymphocytes % (auto) 21.2 % (10.0-50.0); Mean Corpuscular Hemoglobin 26.3 pg (28.0-32.0); Mean Corpuscular Hgb Conc. 32.4 g/dL (32.0-36.0); Mean Corpuscular Volume 81.2 fL (80.0-100.0); Monocytes % (auto) 5.4 % (0.0-12.0); Neutrophils # (auto) 5.5 10 ^3/uL (1.6-8.6); Neutrophils % (auto) 71.1 % (37.0-80.0); Platelet Count (auto) 220 10^3/uL (140-450); Red Blood Cells 5.74 10^6/uL (4.0-5.20); Red Cell Distribution Width 18.3 % (11.8-14.3); White Blood Cell 7.8 10^3/uL (4.4-10.8)
[2019-06-03 09:17] LABS: Albumin 2.9 g/dL (3.4-5.0); BUN/Creatinine Ratio 25.9; Calcium 8.3 mg/dL (8.5-10.1); Potassium 4.5 mmol/L (3.5-5.1)
[2019-06-03 09:22] LABS: Bilirubin, Total 0.7 mg/dL (0.2-1.0); Total Protein 7.5 g/dL (6.4-8.2)
[2019-06-03 09:57] LABS: Urine Bacteria MANY /hpf (None Seen); Urine Blood Negative /uL (Negative); Urine Hyaline Cast MOD /lpf (0 - 2); Urine Mucus FEW (None Seen); Urine Specific Gravity 1.028 (1.001-1.035); Urine WBC 8 /hpf (0 - 5)
[2019-06-03] MEDS ORDERED: FUROSEMIDE 40 MG/4 ML VIAL ONE (10:04)
[2019-06-03] MEDS ORDERED: FUROSEMIDE 40 MG/4 ML VIAL IV ONE (10:15)
[2019-06-03] MEDS ORDERED: cefTRIAXone 1GM/50ML D5W 50 ML IV ONE (10:15)
[2019-06-03] MEDS ORDERED: IOHEXOL 350 MG/ML 100ML IJ ONE (11:40)
[2019-06-03] MEDS ORDERED: POTASSIUM EFFERVESENT TAB 25 MEQ PO ONE (11:45)
[2019-06-03] MEDS ORDERED: NITROGLYCERIN 0.4 MG SL TAB SL PRN (11:45)
[2019-06-03] MEDS ORDERED: DEXTROSE (50%) 50ML SYRG IV PRN (11:45)
[2019-06-03] MEDS ORDERED: MORPHINE SULF INJ 2 MG/ML SYRINGE 1ML IV PRN (11:45)
[2019-06-03] MEDS: ACCU-CHEK COMFORT CURVE STRIP VI SCH ×3 (12:15→20:23)
[2019-06-03] MEDS: InsuLIN REG 1unit/0.01ml Soln (100units/ml) SC SCH ×3 (12:15→20:23)
[2019-06-03 13:00] VITALS: BP 133/73
[2019-06-03] MEDS ORDERED: metOLazone 5 MG TAB PO ONE (14:15)
[2019-06-03] MEDS ORDERED: SPIRONOLACTONE 25 MG TAB PO ONE (15:15)
[2019-06-03] MEDS: GABAPENTIN 300 MG CAP PO SCH ×2 (16:27→22:45)
[2019-06-03] MEDS: hydrOXYzine 25 MG TAB or CAP PO SCH ×2 (16:27→22:44)
[2019-06-03 17:00] VITALS: BP 142/93
[2019-06-03] MEDS ORDERED: FUROSEMIDE 40 MG/4 ML VIAL IV SCH (18:00)
[2019-06-03 21:00] VITALS: BP 133/68
[2019-06-03] MEDS ORDERED: POTASSIUM CHL 20 Meq TABLET PO SCH (22:00)
[2019-06-03] MEDS: ATORVASTATIN 20 MG TAB PO SCH (22:45)
[2019-06-03] MEDS: HEPARIN SODIUM (PORCINE) 5000 UNITS/ML 1ML VIAL SC SCH (22:46)
[2019-06-04] VITALS (7 sets, daily range): BP systolic 112–154; BP diastolic 72–92
[2019-06-04] MEDS: ACCU-CHEK COMFORT CURVE STRIP VI SCH ×7 (00:27→23:35)
[2019-06-04] MEDS ORDERED: IPRATROPIUM BROM 0.5 MG/2.5ML INH SOL NEB PRN (00:45)
[2019-06-04] MEDS ORDERED: ALBUTEROL SULF 2.5 MG/0.5ML(0.5%) NEB SOLN NEB PRN (00:45)
[2019-06-04] MEDS ORDERED: PROMETHAZINE HCL 25 MG/ML 1ML IV PRN (00:45)
[2019-06-04] MEDS ORDERED: FUROSEMIDE 20 MG/2 ML VIAL IV ONE (00:45)
[2019-06-04] MEDS: POTASSIUM CHL 20 Meq TABLET PO SCH ×3 (01:44→21:27)
[2019-06-04] MEDS: levoFLOXacin 500MG 100 ML IV SCH ×2 (01:44→10:42)
[2019-06-04 03:05] LABS: Urine Bacteria FEW /hpf (None Seen); Urine Blood 2+ /uL (Negative); Urine Budding Yeast FEW /hpf (None Seen); Urine Hyaline Cast FEW /lpf (0 - 2); Urine Mucus FEW (None Seen); Urine Specific Gravity 1.008 (1.001-1.035); Urine WBC 213 /hpf (0 - 5); Urine WBC Clumps PRESENT /hpf (None Seen)
[2019-06-04] MEDS: InsuLIN REG 1unit/0.01ml Soln (100units/ml) SC SCH ×7 (04:40→23:34)
[2019-06-04] MEDS: hydrOXYzine 25 MG TAB or CAP PO SCH ×3 (05:57→21:28)
[2019-06-04] MEDS: GABAPENTIN 300 MG CAP PO SCH ×3 (05:57→21:28)
[2019-06-04] MEDS ORDERED: FUROSEMIDE 40 MG/4 ML VIAL IV SCH (06:00)
[2019-06-04] MEDS: TRICOR PO SCH (10:00)
[2019-06-04] MEDS: ASPirin 81 mg TAB PO SCH (10:42)
[2019-06-04] MEDS: PANTOPRAZOLE 40 MG TAB PO SCH (10:42)
[2019-06-04] MEDS: HEPARIN SODIUM (PORCINE) 5000 UNITS/ML 1ML VIAL SC SCH ×2 (10:45→21:30)
[2019-06-04] MEDS ORDERED: metOLazone 5 MG TAB PO ONE (11:45)
[2019-06-04 13:26] LABS: Basophils # (auto) 0.1 10 ^3/uL (0-0.2); Eosinophils # (auto) 0.1 10 ^3/uL (0-0.8); Hemoglobin 14.3 g/dL (12.2-16.2); Monocytes # (auto) 0.4 10 ^3/uL (0-1.3); Nucleated Red Blood Cells % 0.1 %; White Blood Cell 8.5 10^3/uL (4.4-10.8)
[2019-06-04 13:28] LABS: Eosinophils % (auto) 1.2 % (0.0-7.0); Hematocrit 44.7 % (36.0-46.0); Lymphocytes # (auto) 1.6 10 ^3/uL (0.4-5.4); Lymphocytes % (auto) 19.3 % (10.0-50.0); Mean Corpuscular Hemoglobin 25.7 pg (28.0-32.0); Mean Corpuscular Hgb Conc. 31.9 g/dL (32.0-36.0); Mean Corpuscular Volume 80.3 fL (80.0-100.0); Monocytes % (auto) 4.5 % (0.0-12.0); Neutrophils # (auto) 6.3 10 ^3/uL (1.6-8.6); Platelet Count (auto) 234 10^3/uL (140-450); Red Blood Cells 5.57 10^6/uL (4.0-5.20); Red Cell Distribution Width 18.1 % (11.8-14.3)
[2019-06-04 13:45] LABS: Calcium 8.7 mg/dL (8.5-10.1); Potassium 4.2 mmol/L (3.5-5.1)
[2019-06-04] MEDS ORDERED: ENAL2.5T PO (17:31)
[2019-06-04] MEDS ORDERED: CAR3125T PO (17:31)
[2019-06-04] MEDS ORDERED: LEVO500T21 PO (17:31)
[2019-06-04] MEDS ORDERED: FURO40TA4 PO (17:31)
[2019-06-04] MEDS: FUROSEMIDE 20 MG TAB PO SCH (18:34)
[2019-06-04] MEDS: ATORVASTATIN 20 MG TAB PO SCH (21:27)
[2019-06-04] MEDS: CARVEDILOL 3.125 MG TAB PO SCH (21:29)
[2019-06-05] MEDS ORDERED: ACETAMINOPHEN 325 MG TAB PO PRN (02:00)
[2019-06-05] MEDS: MORPHINE SULF INJ 2 MG/ML SYRINGE 1ML IV ONE ×2 (02:14→02:17)
[2019-06-05] MEDS: ACETAMINOPHEN 325 MG TAB PO PRN (02:19)
[2019-06-05] MEDS: InsuLIN REG 1unit/0.01ml Soln (100units/ml) SC SCH ×5 (04:00→22:24)
[2019-06-05] MEDS: ACCU-CHEK COMFORT CURVE STRIP VI SCH ×5 (04:36→20:00)
[2019-06-05 05:00] VITALS: BP 112/70
[2019-06-05] MEDS: hydrOXYzine 25 MG TAB or CAP PO SCH ×3 (05:08→22:26)
[2019-06-05] MEDS: FUROSEMIDE 20 MG TAB PO SCH ×3 (05:08→19:59)
[2019-06-05] MEDS: GABAPENTIN 300 MG CAP PO SCH ×3 (05:08→22:26)
[2019-06-05 08:26] VITALS: BP 150/93
[2019-06-05 08:32] LABS: Basophils # (auto) 0.1 10 ^3/uL (0-0.2); Eosinophils # (auto) 0.1 10 ^3/uL (0-0.8); Hemoglobin 14.2 g/dL (12.2-16.2); Lymphocytes # (auto) 1.8 10 ^3/uL (0.4-5.4); Monocytes # (auto) 0.4 10 ^3/uL (0-1.3); Nucleated Red Blood Cells % 0.1 %
[2019-06-05 08:33] LABS: Basophils % (auto) 0.9 % (0.0-2.0); Eosinophils % (auto) 1.3 % (0.0-7.0); Hematocrit 43.1 % (36.0-46.0); Lymphocytes % (auto) 27.1 % (10.0-50.0); Mean Corpuscular Hemoglobin 26.5 pg (28.0-32.0); Mean Corpuscular Hgb Conc. 32.9 g/dL (32.0-36.0); Mean Corpuscular Volume 80.6 fL (80.0-100.0); Monocytes % (auto) 5.9 % (0.0-12.0); Neutrophils # (auto) 4.3 10 ^3/uL (1.6-8.6); Neutrophils % (auto) 64.8 % (37.0-80.0); Platelet Count (auto) 223 10^3/uL (140-450); Red Blood Cells 5.34 10^6/uL (4.0-5.20); Red Cell Distribution Width 17.6 % (11.8-14.3); White Blood Cell 6.7 10^3/uL (4.4-10.8)
[2019-06-05 08:47] LABS: BUN/Creatinine Ratio 20.2; Calcium 8.8 mg/dL (8.5-10.1); Potassium 4.2 mmol/L (3.5-5.1)
[2019-06-05] MEDS: levoFLOXacin 500MG 100 ML IV SCH (10:00)
[2019-06-05] MEDS: TRICOR PO SCH (10:00)
[2019-06-05] MEDS: ASPirin 81 mg TAB PO SCH (10:46)
[2019-06-05] MEDS: POTASSIUM CHL 20 Meq TABLET PO SCH ×2 (10:46→22:25)
[2019-06-05] MEDS: PANTOPRAZOLE 40 MG TAB PO SCH (10:47)
[2019-06-05] MEDS: ENALAPRIL MALEATE 2.5 MG TAB PO SCH (10:48)
[2019-06-05] MEDS: CARVEDILOL 3.125 MG TAB PO SCH ×2 (10:49→22:25)
[2019-06-05] MEDS: HEPARIN SODIUM (PORCINE) 5000 UNITS/ML 1ML VIAL SC SCH ×2 (10:54→22:26)
[2019-06-05 12:40] VITALS: BP 129/83
[2019-06-05] MEDS: levoFLOXacin 500 MG TAB PO SCH (14:45)
[2019-06-05 16:45] VITALS: BP 153/87
[2019-06-05 22:12] VITALS: BP 142/81
[2019-06-05] MEDS: ATORVASTATIN 20 MG TAB PO SCH (22:26)
[2019-06-06] MEDS: InsuLIN REG 1unit/0.01ml Soln (100units/ml) SC SCH ×4 (00:41→11:31)
[2019-06-06 02:19] VITALS: BP 149/59
[2019-06-06] MEDS: ACCU-CHEK COMFORT CURVE STRIP VI SCH ×4 (04:00→11:31)
[2019-06-06] MEDS: ACETAMINOPHEN 325 MG TAB PO PRN ×2 (04:39→11:05)
[2019-06-06 05:00] VITALS: BP 150/75
[2019-06-06] MEDS: hydrOXYzine 25 MG TAB or CAP PO SCH ×2 (06:26→13:57)
[2019-06-06] MEDS: GABAPENTIN 300 MG CAP PO SCH ×2 (06:27→13:56)
[2019-06-06] MEDS: FUROSEMIDE 20 MG TAB PO SCH (06:27)
[2019-06-06 08:34] VITALS: BP 124/70
[2019-06-06] MEDS: TRICOR PO SCH (10:00)
[2019-06-06] MEDS: HEPARIN SODIUM (PORCINE) 5000 UNITS/ML 1ML VIAL SC SCH (10:47)
[2019-06-06] MEDS: ASPirin 81 mg TAB PO SCH (10:49)
[2019-06-06] MEDS: levoFLOXacin 500 MG TAB PO SCH (10:49)
[2019-06-06] MEDS: POTASSIUM CHL 20 Meq TABLET PO SCH (10:49)
[2019-06-06] MEDS: PANTOPRAZOLE 40 MG TAB PO SCH (10:49)
[2019-06-06] MEDS: ENALAPRIL MALEATE 2.5 MG TAB PO SCH (10:54)
[2019-06-06] MEDS: CARVEDILOL 3.125 MG TAB PO SCH (10:55)
[2019-06-06 12:41] VITALS: BP 119/67
== END 2019-06-06 16:00 | disposition home health service (06) | DRG 291 ==
LOC: ER 08:09 → EDBD 08:09 → TELE 08:10 → TELE-WESTW 12:29
PROVIDERS: ADMIT Internal Medicine; ATTEND Internal Medicine
DX: I13.0 Hypertensive heart and chronic kidney disease with heart failure and stage 1 through stage 4 chronic kidney disease, or unspecified chronic kidney disease (principal); J96.01 Acute respiratory failure with hypoxia; I50.43 Acute on chronic combined systolic (congestive) and diastolic (congestive) heart failure; N39.0 Urinary tract infection, site not specified; E11.22 Type 2 diabetes mellitus with diabetic chronic kidney disease; N18.3 Chronic kidney disease, stage 3 (moderate); E78.5 Hyperlipidemia, unspecified; E11.42 Type 2 diabetes mellitus with diabetic polyneuropathy; F12.90 Cannabis use, unspecified, uncomplicated; I42.9 Cardiomyopathy, unspecified; E66.01 Morbid (severe) obesity due to excess calories; Z74.01 Bed confinement status; Z83.3 Family history of diabetes mellitus; Z88.0 Allergy status to penicillin; Z91.14 Patient's other noncompliance with medication regimen; Z95.810 Presence of automatic (implantable) cardiac defibrillator; Z87.891 Personal history of nicotine dependence; Z79.899 Other long term (current) drug therapy; Z68.36 Body mass index [BMI] 36.0-36.9, adult
CPT/HCPCS: 36415; 51702; 71045; 71275; 80048; 80053; 81001; 82962; 83735; 83880; 84484; 85025; 85379; 87086; 87088; 87186; 93005; 93306; 93971; 94640; 96365; 96375; G0378; J0696; J1815; J1956